=== PATIENT | female | born 1985 | race Caucasian/White ===

== ENCOUNTER 2023-02-01 16:16 | Emergency (ER) | payer OTHER ==
[2023-02-01] MEDS ORDERED: MORPHINE 4 MG/ML SYR ONE ×2 (16:36→17:16)
[2023-02-01] MEDS ORDERED: ONDANSETRON 4 MG/2 ML VIAL ONE (16:37)
[2023-02-01 16:48] LABS: Absolute Lymphocytes (CBC) 1.5 K/uL (0.7-4.9); Hematocrit 41.6 % (36.0-45.0); Lymphocytes % 15.9 % (15.3-44.8); MCV 92.1 fL (80-100); MPV 8.9 fL (7.6-11.3); RBC Red Blood Cell Count 4.51 M/uL (3.86-4.86)
--- NOTE | 2023-02-01 17:07 | RAD REPORT ---
EXAM DESCRIPTION: RAD - Tib Fib Right - 02/01/2023 5:01 pm CLINICAL HISTORY: Right leg pain FINDINGS: No fracture is seen
[2023-02-01] MEDS ORDERED: KETOROLAC 30 MG/ML INJ ONE (17:16)
[2023-02-01 17:34] LABS: Specific Gravity 1.011 (1.005-1.030); Urine Bilirubin NEGATIVE (Negative); Urine Blood Negative (Negative); Urine Clarity Clear (Clear); Urine Color Light-Yellow (Yellow); Urine Glucose NEGATIVE (Negative); Urine Protein NEGATIVE (Negative); Urine Urobilinogen Normal (Normal)
[2023-02-01] MEDS ORDERED: TDAP (DIPHTH,PERTUSS(ACELL),TET VAC) 0.5 ML VIAL IMVAC ONE (17:37)
--- NOTE | 2023-02-01 17:46 | ER ---
Nurse's Notes [facility] Name: Haydee Zuluaga Age: 38 yrs Sex: Female : 1985 Arrival Date: 02/01/2023 Time: 16:16 Bed 14 Private MD: Diagnosis: Contusion of right ankle;Contusion of right lower leg Presentation: 02/01 16:22 Chief complaint: EMS states: patient was kicked in left ankle by a horse. Coronavirus me1 screen: Vaccine status: Patient reports receiving the 2nd dose of the covid vaccine. Ebola Screen: No symptoms or risks identified at this time. 16:22 Method Of Arrival: EMS: [facility] [place] 16:22 Initial Sepsis Screen: Does the patient meet any 2 criteria? No. Patient's initial me1 sepsis screen is negative. Risk Assessment: Do you want to hurt yourself or someone else? Patient reports no desire to harm self or others. Onset of symptoms was February 01, 2023. 16:44 Acuity: DAVIS 3 ph 19:12 Initial Sepsis Screen: Does the patient have a suspected source of infection? No. ph Patient's initial sepsis screen is negative. 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 - Social history:: Smoking status: Patient denies any tobacco usage or history of. Screenin:42 [facility] ED Fall Risk Assessment (Adult) History of falling in the last 3 months, ph including since admission No falls in past 3 months (0 pts) Confusion or Disorientation No (0 pts) Intoxicated or Sedated No (0 pts) Impaired Gait No (0 pts) Mobility Assist Device Used No (0 pt) Altered Elimination No (0 pt) Score/Fall Risk Level 0 - 2 = Low Risk Oriented to surroundings, Maintained a safe environment, Hourly rounding (assess needs \T\ fall precautionary measures) done. Abuse screen: Denies threats or abuse. Denies injuries from another. Nutritional screening: No deficits noted. Tuberculosis screening: No symptoms or risk factors identified. Assessment: 16:42 General: Appears uncomfortable, well groomed, well developed, well nourished, Behavior me1 is calm, cooperative, appropriate for age. Pain: Complains of pain in right ankle Pain radiates to right leg Pain currently is 10 out of 10 on a pain scale. Quality of pain is described as sharp, shooting, Pain began suddenly, Is continuous. Neuro: Level of Consciousness is awake, alert, Oriented to person, place, time, situation. Cardiovascular: Capillary refill < 3 seconds Patient's skin is warm and dry. Cardiovascular: Capillary refill < 3 seconds in bilateral fingers toes. 16:45 Respiratory: Respiratory effort is even, unlabored, Respiratory pattern is regular, me1 symmetrical. Injury Description: kicked by a horse in right anterior ankle. Vital Signs: 16:22 BP 124 / 70; Pulse 83; Resp 18; Pulse Ox 100% on R/A; Pain 10/10; me1 17:03 BP 127 / 90; Pulse 79; Resp 18; Pulse Ox 99% on R/A; ph 16:22 Pain Scale: Adult ri1 ED Course: 16:21 Patient arrived in ED. ri1 16:22 Rosario Jacobs, BRUCE is Primary Nurse. ri1 16:22 Sree Johnson PA is PHCP. cp 16:22 Sree Mak MD is Attending Physician. cp 16:41 Arm band placed on Patient placed in an exam room, in a wheelchair, on pulse oximetry. ph 16:41 Initial lab(s) drawn, by ri, sent to lab. T\T\S collected, blood band applied to patient. ph Missed attempt(s): 20 gauge in right antecubital area. Bleeding controlled, band aid applied, catheter tip intact. Inserted saline lock: 22 gauge in right antecubital area, using aseptic technique. Blood collected. 16:42 Patient has correct armband on for positive identification. Bed in low position. Call ph light in reach. Side rails up X 1. Pulse ox on. NIBP on. Door closed. Noise minimized. Warm blanket given. Ice pack to injury. 16:43 Basic Metabolic Panel Sent. ph 16:43 CBC with Diff Sent. ph 16:43 Type And Screen Sent. ph 16:45 Triage completed. ph 16:45 Provided Education on: on POC, verbalized understanding. . me1 17:02 XRAY Tib Fib RIGHT In Process Unspecified. EDMS 17:42 Jovi Maldonado MD is Referral Physician. cp 18:45 Orthoglass splint: Posterior short lleg splint applied on right leg. stirrup splint ph applied on right leg. 19:11 No provider procedures requiring assistance completed. IV discontinued, intact, ph bleeding controlled, No redness/swelling at site. Pressure dressing applied. Administered Medications: 16:43 Drug: morphine IVP or IV 4 mg Route: IVP; Infused Over: 4 mins; Site: right antecubital;ph 19:11 Follow up: Response: No adverse reaction; Pain is decreased ph 16:43 Drug: Ondansetron IVP 4 mg Route: IVP; Site: right antecubital; ph 19:11 Follow up: Response: No adverse reaction ph 17:10 Drug: Ketorolac IVP 15 mg Route: IVP; Site: right antecubital; ph 19:11 Follow up: Response: No adverse reaction ph 17:10 Drug: morphine IVP or IV 4 mg Route: IVP; Infused Over: 4 mins; Site: right antecubital;ph 19:11 Follow up: Response: No adverse reaction ph 19:02 Drug: Hydrocodone-Acetaminophen PO (7.5 mg-325 mg) 1 tabs Route: PO; ha1 19:11 Follow up: Response: No adverse reaction; Medication administered at discharge. ph 19:03 Drug: Tetanus-Diphtheria Toxoid IM Adult 0.5 ml {Cyber Systems Administrator: [employer]. Exp: ha1 11/25/2023. Lot #: [id number]. } Route: IM; Site: right deltoid; 19:11 Follow up: Response: No adverse reaction ph Medication: 19:12 Vaccine Information Statement (VIS) provided today. Questions and/or concerns ph addressed. VIS edition date: February 10, 2021. Outcome: 17:46 Discharge ordered by . cp 19:12 Discharged to home via wheelchair, with friend. ph 19:12 Condition: good 19:12 Discharge instructions given to patient, Instructed on discharge instructions, follow up and referral plans. medication usage, Demonstrated understanding of instructions, follow-up care, medications, Prescriptions given X 3. 19:12 Patient left the ED. ph Signatures: Dispatcher [employer] Candace Horner RN RN ph Sree Johnson PA PA cp Ayala, Heidy, RN RN ha1 Rosario Jacobs RN RN me1 Corrections: (The following items were deleted from the chart) 19:06 19:04 morphine IVP or IV 4 mg IVP in right antecubital over 4 mins ha1 1
--- NOTE | 2023-02-01 17:46 | EDPHYS ---
Physician Documentation [facility] Name: Haydee Zuluaga Age: 38 yrs Sex: Female : 1985 Arrival Date: 02/01/2023 Time: 16:16 Bed 14 Private MD: ED Physician Sree Mak HPI: 01/31 16:25 Patient is a 38-year-old female with no significant past medical history who presents cp to the emergency department with injury and deformity of right lower leg and ankle. Patient reports she was getting off of a horse when another horse struck her in the lower leg ankle area causing injury. Patient denies any previous injuries to her right lower extremity and was brought in by EMS due to inability to bear weight. MANAGER INSPECTION: 02/01 16:43 LMP N/A - Hysterectomy ph Historical: - Allergies: 16:25 No Known Allergies; me1 - Home Meds: 16:25 zoloft [Active]; simeglutide [Active]; hormone/progesterone/testosterone [Active]; me1 - PMHx: 16:25 Anxiety; me1 - PSHx: 16:25 Cholecystectomy; hysterectomy; me1 16:27 gastric sleeve; me1 - Immunization history:: Adult Immunizations up to date. - Social history:: Smoking status: Patient denies any tobacco usage or history of. ROS: 16:30 Constitutional: Negative for body aches, chills, fever, poor PO intake. cp 16:30 Eyes: Negative for injury, pain, redness, and discharge. cp 16:30 ENT: Negative for drainage from ear(s), ear pain, sore throat, difficulty swallowing, difficulty handling secretions. Exam: 16:35 Constitutional: The patient appears in no acute distress, alert, awake, non-toxic, well cp developed, well nourished, in obvious pain, uncomfortable. 16:35 Head/Face: Normocephalic, atraumatic. cp 16:35 Eyes: Periorbital structures: appear normal, Conjunctiva: normal, no exudate, no injection, Sclera: no appreciated abnormality, Lids and lashes: appear normal, bilaterally. 16:35 ENT: External ear(s): are unremarkable, Nose: is normal, Mouth: Lips: moist, Oral mucosa: pink and intact, moist, Posterior pharynx: is normal, airway is patent, no erythema, no exudate. 16:35 Neck: ROM/movement: is normal, is supple, without pain, no range of motions limitations. 16:35 Chest/axilla: Inspection: normal, Palpation: is normal, no crepitus, no tenderness. 16:35 Cardiovascular: Rate: normal, Rhythm: regular. 16:35 Respiratory: the patient does not display signs of respiratory distress, Respirations: normal, no use of accessory muscles, no retractions, labored breathing, is not present, Breath sounds: are clear throughout, no decreased breath sounds, no stridor, no wheezing. 16:35 Abdomen/GI: Inspection: abdomen appears normal, Palpation: abdomen is soft and non-tender, in all quadrants. 16:35 Back: pain, is absent, ROM is normal. 16:35 Musculoskeletal/extremity: Extremities: grossly normal except: noted in the right leg: Examination of the right lower leg and right ankle: Moderate swelling along the lateral side of the right ankle with abrasions across the anterior aspect of the ankle, marked tenderness to palpation, pain with passive range of motion, mild inversion deformity appreciated, strong dorsalis pedis pulse palpated, Achilles tendon palpated and intact, mild tenderness to palpation noted lateral side of the distal right knee. Vital Signs: 16:22 BP 124 / 70; Pulse 83; Resp 18; Pulse Ox 100% on R/A; Pain 10/10; me1 17:03 BP 127 / 90; Pulse 79; Resp 18; Pulse Ox 99% on R/A; ph 16:22 Pain Scale: Adult me1 Procedures: 18:00 Splinting: Splint applied to right ankle using Orthoglass splint, posterior short leg cp and stirrup. applied by nurse. Examined by me, post splint application: neurovascular intact, Patient tolerated well. MDM: 16:26 Patient medically screened. cp 17:00 Differential diagnosis: dislocation, closed fracture, contusion. 17:35 Management of patient was discussed with the following: Mitering Machine Operator: DR Maldonado, recommends cp elevate, remain non-wt bearing and can f/u in clinic next week. 17:35 I considered the following discharge prescriptions or medication management in the emergency department Medications were administered in the Emergency Department. See SEP. 17:45 Data reviewed: vital signs, nurses notes, lab test result(s), radiologic studies, plain cp films, and as a result, I will discharge patient. 02/01 16:26 Order name: Basic Metabolic Panel; Complete Time: 17:21 cp 02/01 16:26 Order name: CBC with Diff; Complete Time: 17:21 cp 02/01 17:22 Interpretation: Normal except: ANTONY% 76.2. 02/01 16:26 Order name: Test, Urine; Complete Time: 17:48 cp 02/01 16:26 Order name: Type And Screen; Complete Time: 17:48 cp 02/01 16:26 Order name: Urinalysis w/ reflexes; Complete Time: 17:48 cp 02/01 16:26 Order name: XRAY Tib Fib RIGHT; Complete Time: 17:21 cp 02/01 17:22 Interpretation: Report reviewed. 02/01 16:26 Order name: Labs collected and sent; Complete Time: 16:43 cp 02/01 17:21 Order name: Wound dressing; Complete Time: 18:38 cp 02/01 17:21 Order name: Splint: right short leg/stirrup; Complete Time: 18:38 cp 02/01 17:48 Order name: Crutches; Complete Time: 18:38 cp Administered Medications: 16:43 Drug: morphine IVP or IV 4 mg Route: IVP; Infused Over: 4 mins; Site: right antecubital;ph 19:11 Follow up: Response: No adverse reaction; Pain is decreased ph 16:43 Drug: Ondansetron IVP 4 mg Route: IVP; Site: right antecubital; ph 19:11 Follow up: Response: No adverse reaction ph 17:10 Drug: Ketorolac IVP 15 mg Route: IVP; Site: right antecubital; ph 19:11 Follow up: Response: No adverse reaction ph 17:10 Drug: morphine IVP or IV 4 mg Route: IVP; Infused Over: 4 mins; Site: right antecubital;ph 19:11 Follow up: Response: No adverse reaction ph 19:02 Drug: Hydrocodone-Acetaminophen PO (7.5 mg-325 mg) 1 tabs Route: PO; ha1 19:11 Follow up: Response: No adverse reaction; Medication administered at discharge. 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 Exp: ha1 11/25/2023. Lot #: [id number]. } Route: IM; Site: right deltoid; 19:11 Follow up: Response: No adverse reaction ph Disposition Summary: 02/01/23 17:46 Discharge Ordered Location: Home cp Problem: new cp Symptoms: have improved cp Condition: Stable cp Diagnosis - Contusion of right ankle cp - Contusion of right lower leg cp Followup: cp - With: Jovi Maldonado MD - When: 2 - 3 days - Reason: Recheck today's complaints Discharge Instructions: - Discharge Summary Sheet cp - Contusion cp Forms: - Medication Reconciliation Form cp - Thank You Letter cp - Antibiotic Education cp - Prescription Opioid Use cp - Patient Portal Instructions cp Prescriptions: - acetaminophen-codeine 300-30 mg Oral tablet - take 2 tablet by ORAL route every 8 hours; 20 tablet; Refills: 0, Product cp Selection Permitted - Cephalexin 500 mg Oral Capsule - take 1 capsule by ORAL route every 8 hours for 10 days; 30 capsule; Refills: 0, cp Product Selection Permitted - Naprosyn 500 mg Oral Tablet - take 1 tablet by ORAL route 2 times per day take with food; 20 tablet; Refills: cp 0, Product Selection Permitted Signatures: Dispatcher [employer] Candace Horner RN RN ph Sree Johnson, TOMMY PA cp Roslyn Teague RN RN ha1 Rosario Jacobs RN RN me1 Corrections: (The following items were deleted from the chart) 17:02 16:27 Ankle Right 3 View+[email or web address] ordered. INESCO LARRY
[2023-02-01] MEDS ORDERED: HYDROCODONE/APAP 7.5/325 MG TAB ONE (18:50)
[2023-02-01 19:18] VITALS: BP 127/90; O2SAT 99
== END 2023-02-01 19:12 | disposition home or self-care (01) ==
LOC: ER 16:16
PROC: 2W3QX1Z Immobilization of Right Lower Leg using Splint (ICD-10-PCS; principal; 2023-02-01)
DX: S90.01XA Contusion of right ankle, initial encounter (principal); S80.11XA Contusion of right lower leg, initial encounter; Z23 Encounter for immunization; F41.9 Anxiety disorder, unspecified
CPT/HCPCS: 85025; 80048; 36415; 86900; 86850; 81025; 86901; 81003; 73590; 90471; 96375; 96374; 99285; 29515; J2405